=== PATIENT | female | born 1995 | race Caucasian/White ===

== ENCOUNTER → 2020-10-29 09:11 | Outpatient (CLI) | payer BC, SELFPAY ==
--- NOTE | 2020-10-29 09:15 | US_ITS ---
STUDY: ULTRASOUND BREAST - RIGHT REASON FOR EXAM: Female, 25 years old. Lump TECHNIQUE: Axial and longitudinal images of the RIGHT breast were performed with a high resolution ultrasound transducer. # OF IMAGES: 10 COMPARISON: None. FINDINGS: RIGHT Breast: Ultrasound evaluation of the right breast, in the area of concern, shows a well-defined simple cyst measuring 1.6 x 1.5 x 1.2 cm. There is no suspicious shadowing solid lesion, architectural distortion, or clustered shadowing calcifications. This is a benign entity, but if bothersome to the patient it could be aspirated under sonographic guidance. US/Breast Limited Unilateral IMPRESSION: Simple cyst measuring 1.6 x 1.5 x 1.2 cm correlating to the palpable right breast lump. No specific follow-up is needed, however, if this lesion is bothersome to the patient, it could be aspirated under sonographic guidance ASSESSMENT CATEGORY: BIRADS Category 2: Benign. A letter regarding these results will be sent to the patient by the facility within 30 days. Electronically Signed: Jacky Jay MD at 10:29 EDT , Service support ,
--- NOTE | 2020-10-29 09:15 | BI_ITS ---
MAMMOGRAPHY - BILATERAL DIAGNOSTIC REASON FOR EXAM: Female, 25 years old. Right-sided lump PERTINENT HISTORY: Grandmother with breast cancer. TECHNIQUE: Digital examination. Mediolateral oblique (MLO) and craniocaudad (CC) views of both breasts were obtained. CAD: CAD was performed on this study. COMPARISON: None. Baseline examination. FINDINGS: Breast Composition: The breasts are extremely dense, which lowers the sensitivity of mammography. There are no dominant masses or suspicious calcifications. No other significant abnormalities are identified. BI/DIAG MAMM W/CAD, BILAT IMPRESSION: Although there are no suspicious mammographic findings, because the patient complains of a palpable right breast lump, further evaluation of this area with ultrasound is recommended. Recall Side: Right Breast ASSESSMENT CATEGORY: BIRADS Category 0: Incomplete. Need additional imaging evaluation. A letter regarding these results will be sent to the patient by the facility within 30 days. FOLLOW UP RECOMMENDATION: Ultrasound Recommended. (I) Approximately 10% of breast cancers are not detected by mammography. A normal mammogram should not delay biopsy of a clinically suspicious abnormality. Electronically Signed: Jacky Jay MD at 10:27 EDT , Service support ,
== END ==
PROVIDERS: Referring Provider Student in an Organized Health Care Education/Training Program; Visit Provider Student in an Organized Health Care Education/Training Program
DX: N63.11 Unspecified lump in the right breast, upper outer quadrant (principal)
CPT/HCPCS: 76642; 77062; 77066; G0279

== ENCOUNTER → 2020-12-23 | Outpatient (CLI) | payer BC, SELFPAY ==
[2020-12-26 03:07] LABS: Chlamydia By Nucleic Acid AMP Negative (Negative)
[2020-12-26 08:15] LABS: Gonococcus By Nucleic Acid AMP Negative (Negative)
[2020-12-27 08:51] LABS: HPV APTIMA, High Risk Negative (Negative); HPV Reflexed? YES, CHARGE PATIENT
== END | disposition home or self-care (01) ==
LOC: LABSPEC 12:25
PROVIDERS: Visit Provider Obstetrics & Gynecology
DX: Z12.4 Encounter for screening for malignant neoplasm of cervix (principal); Z11.3 Encounter for screening for infections with a predominantly sexual mode of transmission
CPT/HCPCS: 87491; 87591; 87624; 88175; G0145

== ENCOUNTER → 2021-01-13 17:00 | Outpatient (CLI) | payer BC, SELFPAY ==
[2021-01-13 17:36] LABS: Absolute Neutrophil Count 5.9 X10^3/uL (2.0-7.7); Basophil# 0.03 X10^3/uL; Basophil% 0.3 % (0-1); Eosinophil# 0.06 X10^3/uL; Eosinophils% 0.6 % (0-5); Hematocrit 37.5 % (37-47); Hemoglobin 12.5 g/dL (12.0-15.0); Lymphocyte % 27.5 % (19-41); Mean Corp Hgb Conc 33.3 g/dL (32-36); Mean Corpuscular Hgb 28.9 pg (27.0-32.0); Mean Corpuscular Volume 86.8 fL (81-99); Mean Platelet Vol. 9.3 fl (6.2-12.0); Monocyte# 0.82 X10^3/uL; Monocyte% 8.7 % (0-10); NRBC Flagged by Analyzer 0 % (0-5); Neutrophil # 5.92 X10^3/uL (2.7-7.7); Neutrophil % 62.5 % (47-70); Platelet Count 377 K/mm3 (150-450); RBC Distribution Width CV 12.4 % (11.6-14.6); RBC Distribution Width SD 39.7 fl (35.1-43.9); Red Blood Count 4.32 M/mm3 (4.2-5.4); White Blood Count 9.5 K/mm3 (4.4-11.0)
[2021-01-14 10:18] LABS: HIV - WCH Non-Reactive (Nonreactive); Hepatitis B Surface Antigen Non-Reactive (Nonreactive); Hepatitis C Antibody Non-Reactive (Nonreactive); Rubella IgG Reactive (Nonreactive); Syphilis Antibodies Non-reactive
== END ==
PROVIDERS: Visit Provider Obstetrics & Gynecology
DX: Z34.81 Encounter for supervision of other normal pregnancy, first trimester (principal)
CPT/HCPCS: 36415; 81220; 85025; 86703; 86762; 86780; 86803; 87086; 87088; 87340

== ENCOUNTER → 2021-05-04 09:12 | Outpatient (CLI) | payer BC, SELFPAY ==
[2021-05-04 10:14] LABS: Hematocrit 34.8 % (37-47); Hemoglobin 11.4 g/dL (12.0-15.0); Mean Corp Hgb Conc 32.8 g/dL (32-36); Mean Corpuscular Hgb 29.3 pg (27.0-32.0); Mean Corpuscular Volume 89.5 fL (81-99); Mean Platelet Vol. 10.2 fl (6.2-12.0); Platelet Count 323 K/mm3 (150-450); RBC Distribution Width CV 12.9 % (11.6-14.6); RBC Distribution Width SD 42.4 fl (35.1-43.9); Red Blood Count 3.89 M/mm3 (4.2-5.4); White Blood Count 12.3 K/mm3 (4.4-11.0)
[2021-05-04 10:53] LABS: Glucose Challenge Gest 1H 50g 99 mg/dL (70-140)
== END ==
PROVIDERS: Visit Provider Obstetrics & Gynecology
DX: Z34.82 Encounter for supervision of other normal pregnancy, second trimester (principal)
CPT/HCPCS: 36415; 82950; 85027

== ENCOUNTER 2021-05-14 15:25 | Outpatient (CLI) | payer BC, SELFPAY ==
[2021-05-14 15:44] VITALS: BMI 29.9
[2021-05-14 15:45] VITALS: BP 118/76; PULSE 102; TEMP 36.9; O2SAT 99
[2021-05-14 15:46] VITALS: BP 118/76; PULSE 102
--- NOTE | 2021-05-14 16:29 | OB.TRI.NOTE ---
HPI - General HPI Narrative CECI OVALLES, is a 25 F who presents status post fall PFSH PFSH Home Medications [id number] [] 1 tab PO DAILY 05/14/21 [History Last Taken 05/14/21 08:00] Allergy/AdvReac Type Severity Reaction Status Date / Time No Known Allergies Allergy Verified 05/14/21 15:56 Physical Exam Const alert, oriented x3, no apparent distress, average body habitus, healthy appearing and well nourished HEENT moist oral mucous membranes Head and Scalp: normocephalic and atraumatic Face and Sinus: normal facial exam Eyes PERRL Neck full ROM Resp normal respiratory effort, no retractions and no use of accessory muscles GI normal to inspection, nondistended, normoactive bowel sounds GI Narrative: Gravid, soft and nontender Extremity normal to inspection, full ROM and no clubbing, cyanosis or edema Psych mental status grossly normal, affect normal, speech normal and activity/motor behavior normal NST FHR Rate Baby A Baseline: 140 Variability:: Moderate Accelerations:: 10 x 10 Decelerations:: None NST Reactive:: Yes Uterine Activity:: quiet Assessment & Plan (1) : PLAN: Patient status post fall at 11:00 AM. Fell on hands and knees, believes there was no abdominal trauma. Patient did not lose consciousness, did not hit head. Overall feels well, knees are sore from fall and has some muscle aches. No abdominal tenderness. No vaginal bleeding. Discussed heart rate tracing, within normal limits. Patient desires discharge home. Fall was greater than 4 hours ago, 1 hour of monitoring within normal limits. Okay to discharge home with precautions and follow-up at scheduled appointments
== END 2021-05-14 16:45 | disposition home or self-care (01) ==
LOC: WPOUT 15:37 → WP 15:38
PROVIDERS: Referring Provider Obstetrics & Gynecology; Visit Provider Obstetrics & Gynecology
DX: O26.899 Other specified pregnancy related conditions, unspecified trimester (principal); M79.10 Myalgia, unspecified site; W19.XXXA Unspecified fall, initial encounter; Y93.9 Activity, unspecified; Y92.9 Unspecified place or not applicable; Y99.9 Unspecified external cause status; Z3A.00 Weeks of gestation of pregnancy not specified
CPT/HCPCS: 59025; 59050; 99218; G0378

== ENCOUNTER 2021-07-10 12:26 | Outpatient (CLI) | payer BC, SELFPAY | END 2021-07-10 23:59 | disposition short-term general hospital (02) | LOC: LABSPEC 12:28 | PROVIDERS: Visit Provider Obstetrics & Gynecology | DX: Z36.85 Encounter for antenatal screening for Streptococcus B (principal) | CPT/HCPCS: 87081 ==

== ENCOUNTER 2021-07-30 15:50 | Inpatient (IN) | payer BC, SELFPAY ==
[2021-07-30] VITALS (12 sets, daily range): BP systolic 132–175; BP diastolic 81–103; PULSE 60–88; TEMP 36.3–37.5; O2SAT 81–97; BMI 31.4
[2021-07-30] MEDS: 0.9% Saline Lock 10 ML Syringe IV (16:20)
[2021-07-30 16:49] LABS: Absolute Lymphocyte Count 2.63 X10^3/uL (0.83-4.51); Absolute Neutrophil Count 6.9 X10^3/uL (2.0-7.7); Basophil# 0.03 X10^3/uL; Basophil% 0.3 % (0-1); Eosinophil# 0.04 X10^3/uL; Eosinophils% 0.4 % (0-5); Hematocrit 39.1 % (37-47); Hemoglobin 12.9 g/dL (12.0-15.0); Lymphocyte # 2.63 X10^3/ul (0.83-4.51); Mean Corpuscular Hgb 28.4 pg (27.0-32.0); Mean Corpuscular Volume 86.1 fL (81-99); Mean Platelet Vol. 11.2 fl (6.2-12.0); Monocyte# 0.86 X10^3/uL; Monocyte% 8.2 % (0-10); NRBC Flagged by Analyzer 0 % (0-5); Neutrophil # 6.89 X10^3/uL (2.7-7.7); Neutrophil % 65.2 % (47-70); Platelet Count 347 K/mm3 (150-450); RBC Distribution Width CV 13.6 % (11.6-14.6); RBC Distribution Width SD 42.5 fl (35.1-43.9); Red Blood Count 4.54 M/mm3 (4.2-5.4); White Blood Count 10.5 K/mm3 (4.4-11.0)
[2021-07-30] MEDS: miSOPROStol 25 MCG TABLET PO ×2 (17:00→21:18)
--- NOTE | 2021-07-30 17:13 | PCM.HP.BLA ---
History and Physical Date of Admission: 07/30/21 ACOG ANTEPARTUM RECORD - HISTORY AND PHYSICAL (07/30/2021) Name: CECI OVALLES History of this : This is a 25 year old [id number] presents at 39 wks + 3 days gestation. Patient was noted to have elevated blood pressures in the office today along with 1+ proteinuria. Given this she was sent to labor and delivery for induction. OB Physician: Jaclyn Tomlinson Craig's Physician: PED PROGRAMMING MANAGER ...................................................................... : 1995 Age: 25 Address: [address] [place] [address] Phone: [phone] Insurance Carrier: PELON Wand[facility] [id number] Emergency Contact: BLOSSOM COSTELLO [phone] ...................................................................... Final RICKIE: 08/03/21 By Ultrasound: 8 weeks 1 day PARITY: (G-Total Pregnancies P-Fullterm,Premature,Induced AB,Spont AB, Ectopics, Multiple,Living) RICKIE CONFIRMATION: By LMP: 10/27/20 Initial Exam: 08/03/21 By First Ultrasound Exam: 08/05/21 Final RICKIE: 08/03/21 OB PROBLEM LIST: Denies depression/anxiety history First cousin with Down Syndrome genetic screening negative , carrier screening neg CF. Not enough sample for SMA Had Covid and pneumonia n April 2020 Plans epidural, and will breastfeed. 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 Illicit Drug Use - None Sexual Activity - Residence - lives with Place of - [place], [place] Spouse-Sig Other Name - Pieter Costello Spouse-Sig Other Occupation - [employer] Spouse-Sig Other Phone No - [phone] PRIOR DELIVERY HISTORY DEL DATE GEST LAB WT LB WT OZ TYPE ANES LABOR TX ANTEPARTUM FLOW CHART VISIT GE RTC FU F F AR U U DATE WK MD WKS HT PN HR M SS BP ED WT AR GL D EF ST __ ____ ___ __ __ ___ __ __ __ ___ __ __ __ ___ __ 17 Feb 39 JMW 6 38 V + + 140/100 0 194 1+ - 1 50 -2 10 Jul 38 JM 1 38 V + + 122/80 1+ 195 tr - 1 04 Jul 37 JM 1 37 V + + 130/83 0 194 - - 1 Jun JM 1 36 V + + 138/70 0 196 tr - 1 21 Jun JM 1 35 V + + 122/74 0 187 tr - 07 Jun JM 2 33 V + + O 120/76 0 191 tr - 15 Jun 11 JM 2 30 - + + 134/68 0 188 1+ - 22 May 09 JM 3 27 - + + 138/70 0 184 tr ne 15 Apr 02 JM 4 21 - on + 118/82 0 178 - - 03 Feb 25 JM 5 15 - + ? 102/74 0 165 tr - 03 Jan 21 JM 4 11 - on O 140/80 0 164 - - ANTEPARTUM NOTE(S): Jul 30 2021: see note, to L and D for cytotec, No PIH Sxs Jul 23 2021: nausea and vomitting Jul 17 2021: Jul 10 2021: headaches Jul 03 2021: doing well Jun 19 2021: no concerns expressed May 27 2021: see note May 04 2021: FM well, Feels well, Labs drawn Mar 27 2021: Sono Today,Good FM,Feeling Well Feb 13 2021: Periodic Nausea, Energy level improving Jan 13 2021: COMPREHENSIVE ANTEPARTUM NOTE(S): Jul 30 2021: Ceci is here for visit. She reports cough, congestion for several weeks. Covid testing negative. OTC not helping much. Had Mucinex last night, Tylenol this am. Good mvmt, no edema. Denies h/a. B/P elevated today x2. LMT Jul 23 2021: Ceci is 38w3d here for PNV. Good FM 1+edema. States her nausea and vomitting is back. Would like cervix checked. BR Jul 23 2021: 38wk, 1 cm CE. Considering IOL. JM Jul 17 2021: Ceci is 37w4d. Here for PNV. FM. No edema. She complains of a few days of a slightly elevated BP. Usually goes back to normal after rest, Would like cervix check today. MR Jul 17 2021: 37wks, GBS neg. JM Jul 15 2021: H taken to OB. tkg Jul 10 2021: Ceci is 36w4d here for visit. Good FM no edema. C/O headaches. GBS and LARC consent done today. BR Jul 10 2021: 36wks, GBS today. JM Jul 03 2021: Ceci is 35w4d here for PNV good FM no edema doing well no concerns or questions, BR Jul 03 2021: 35 weeks, status post upper respiratory tract infection. Now recovered. GBS next visit. JM Jun 19 2021: Ceci is here for a pnv at 33/4. Good FM. No edema present. Denies concerns/ questions. No ctx's present. Liam passed over [place]. MK Jun 19 2021: 33 weeks, liam passed over the holidays. Doing well no signs of depression. JM May 27 2021: Ceci is 30w2d, here for PNV, positive movement no edema. She reports dizzy spells starting since tuesday. She says she has been getting one dizzy spell a day lasting a couple minutes up to two hours. Laying down helps. Otherwise she has been doing good. BR May 27 2021: 30wk, had dizziness for an hour for three days. During eating. No fall or trauma. Educated on hydration. MACKENZIE May 04 2021: 27 weeks, 1 hour GTT within normal limits. Still with mild nausea. JM Mar 27 2021: 21 weeks, anatomy ultrasound within normal limits. Still with some nausea, slight eating meals and hydrating. For 1 hour GTT next visit. MACKENZIE Feb 13 2021: 15 weeks, still with nausea. Mostly at night. Is able to hydrate and keep small meals down. Educated on Pepcid and Tums for reflux. For anatomy ultrasound next visit. MACKENZIE Jan 13 2021: 11 weeks, for NIPT and carrier screening today. Along with panel today. Patient has severe nausea at times but vomiting comes and goes, still able to hydrate and keep small meals down. Already taking Phenergan and Diclegis. Educated patient on hydration and need for further intervention, currently for expectant management. MACKENZIE Jan 01 2021: TELEHEALTH NOB VISIT, 40 MINUTE DURATION. Ceci is a 25 year old with an RICKIE of 08/03/2021, current GA is 9 w 3 d. She resides with her , Pieter, and she states that he is supportive. 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 She reports that she has been experiencing nausea and Dec 23 2020: Ceci presents here today with spouse(Pieter) for Missed Menses appointment. 25 y.o. G 1 P 0 non-smoker with regular menses and LMP of 10-27-20 lasting her average of 5-6 days. UPT is positive today in our Office. Denies spotting/bleeding thus far in this . Presents at 9 weeks 1 day by LMP with an approximate RICKIE of 08-03-21. Plans to deliver at [facility]. Reports having daily nausea REVIEW OF SYSTEMS: GENERAL - Denies fever, or chills SKIN - Denies rash, new skin lesions, or change in moles EYES - Denies blurred vision, or change in visual acuity EARS - Denies ear pain, or difficulty hearing NOSE - Denies nasal congestion, discharge, or bleeding MOUTH - Denies sore throat, or difficulty swallowing NECK - Denies pain or swelling RESPIRATORY - Denies shortness of breath, cough, wheezing CARDIOVASCULAR - Denies palpitations, chest pain, orthopnea, PND, peripheral edema, syncope or claudication GASTROINTESTINAL - Denies nausea, vomiting, diarrhea, constipation, Denies abdominal pain, melena and or bright red blood GENITOURINARY - Denies dysuria, frequency of urination, urgency, or hesitancy MUSCULOSKELETAL - Denies joint or muscle pain, or back pain NEUROLOGICAL - Denies localized numbness, weakness, or tingling PSYCHIATRIC - Denies depression, anxiety, substance abuse or suicide attempts ENDOCRINE - Denies heat or cold intolerance, weight loss or gain, increasing thirst HEMATO-IMMUNOLOGIC - Denies easy bruising, bleeding, oral ulcerations or recurrent infections GENETICS SCREENING: Age 35+ years: No Thalassemia: No Neural Tube Defect: No Down Syndrome: Yes Cousin GIO-SACHS: No Sickle Cell Disease: No Hemophilia: No Musc. Dystrophy: No Cystic Fibrosis: No-declines screening Lara Chorea: No Mental Retardation: No Fragile X: No Other genetic: No Other defects: No SABs/still births: No Drugs since LMP: No INFECTION HISTORY: High risk AIDS: No High risk Hepatitis: No Exposed to TB: No Exposed to Herpes: No Rash/viral illness since LMP: No History of STD: No MENSTRUAL HISTORY: *Menses Amount/Duration: 4-5 DAYSMenses Regularity: RegularMenarche (Age Onset): 12* PAST SUMMARY: PARITY: 1. Total Pregnancies............ 1 2. Full Term Pregnancies........ 0 3. Premature.................... 0 4. Abortions - Induced.......... 0 5. Abortions - Spontaneous...... 0 6. Ectopics..................... 0 7. Multiple Births.............. 0 8. Living Children.............. 0 PHYSICAL EXAMINATION General Appearence: 25 yo female in no acute distress Vital Signs: AF, VSS Heart: RRR without rubs or gallops Lungs: CTA x 2 Breasts: deferred Abdomen: gravid Pelvis: Cervix: 1/50 Presentation: cephalic Station: -2 Fetus: Size: AGA Movement: present Heart: present LAB TEST(S) ORDERED SINCE:11/06/20 05/04/2021 GLUCOSE CHALLENGE GEST 1H 50G 05/04/2021 CBC-COMPLETE BLOOD CNT NO DIFF 02/01/2021 MISCELLANEOUS LAB PROCEDURE 2 02/01/2021 MISCELLANEOUS LAB PROCEDURE 02/01/2021 CYSTIC FIBROSIS PROF 01/30/2021 CF Mother 01/15/2021 URINE CULTURE 01/14/2021 RUBELLA IGG 01/14/2021 L509.8000 01/14/2021 HIV - [facility] 01/14/2021 HEPATITIS C ANTIBODY 01/14/2021 HEPATITIS B SURFACE ANTIGEN 01/13/2021 T AND S-NO CHARGE W/PNP 01/13/2021 CBC W/DIFF, AUTOMATED 12/27/2020 PAP IG HPV HR APTIMA 12/26/2020 CHLAMYDIA/GC CYNDY APTIMA 07/30/2021 CBC W/DIFF, AUTOMATED 07/13/2021 RULE OUT BETA STREP (GRP. B) == ==== Order Observation Description Value Ref_Range A* Site == ==== CBC W/DIFF, AUT NOTE [facility] CBC W/DIFF, AUT WBC 10.5 K/mm3 4.4-11.0 ML CBC W/DIFF, AUT RBC 4.54 M/mm3 4.2-5.4 ML CBC W/DIFF, AUT HGB 12.9 g/dL 12.0-15.0 ML CBC W/DIFF, AUT HCT 39.1 37-47 ML CBC W/DIFF, AUT MCV 86.1 fL 81-99 ML CBC W/DIFF, AUT MCH 28.4 pg 27.0-32.0 ML CBC W/DIFF, AUT MCHC 33.0 g/dL 32-36 ML CBC W/DIFF, AUT RDW CV 13.6 11.6-14.6 ML CBC W/DIFF, AUT RDW SD 42.5 fl 35.1-43.9 ML CBC W/DIFF, AUT PLT 347 K/mm3 150-450 ML CBC W/DIFF, AUT MPV 11.2 fl 6.2-12.0 ML CBC W/DIFF, AUT NEUT% 65.2 47-70 ML CBC W/DIFF, AUT LY% 25.0 19-41 ML CBC W/DIFF, AUT MONO% 8.2 0-10 ML CBC W/DIFF, AUT EO% 0.4 0-5 ML CBC W/DIFF, AUT BASO% 0.3 0-1 ML CBC W/DIFF, AUT IG% 0.900 0.0-0.9 ML IG% - Immature Granulocytes (promyelocytes, myelocytes and metamyelocytes) > 1% indicates that a LEFT SHIFT is Present. CBC W/DIFF, AUT ABSOLUTE NEUT 6.9 X10 3/uL 2.0-7.7 ML CBC W/DIFF, AUT ABSOLUTE LYMPH 2.63 X10 3/uL 0.83-4.51 ML CBC W/DIFF, AUT NUCLEATED RBC 0 0-5 ML RULE OUT BETA S NOTE [facility] GLUCOSE CHALLEN NOTE [facility] GLUCOSE CHALLEN GLU GEST 50G 1H 99 mg/dL 70-140 ML CBC-COMPLETE BL NOTE [facility] CBC-COMPLETE BL WBC 12.3 K/mm3 4.4-11.0 H ML CBC-COMPLETE BL RBC 3.89 M/mm3 4.2-5.4 L ML CBC-COMPLETE BL HGB 11.4 g/dL 12.0-15.0 L ML CBC-COMPLETE BL HCT 34.8 37-47 L ML CBC-COMPLETE BL MCV 89.5 fL 81-99 ML CBC-COMPLETE BL MCH 29.3 pg 27.0-32.0 ML CBC-COMPLETE BL MCHC 32.8 g/dL 32-36 ML CBC-COMPLETE BL RDW CV 12.9 11.6-14.6 ML CBC-COMPLETE BL RDW SD 42.4 fl 35.1-43.9 ML CBC-COMPLETE BL PLT 323 K/mm3 150-450 ML CBC-COMPLETE BL MPV 10.2 fl 6.2-12.0 ML CYSTIC FIBROSIS NOTE [facility] CYSTIC FIBROSIS CF, SCREEN LCI TEST RESULT LIMITS Cystic Fibrosis Profile CF, Screen Comment: RESULTS: Negative for 32 mutations analyzed INTERPRETATION: This individual is negative for the mutations analyzed. This negative result may need further interpretation depending on the clinical indication. This result reduces but does not eliminate the risk to be a CF carrier. COMMENTS: The detection rate varies with ethnicity and is listed below. The presence of an undetected mutation in the CF gene cannot be ruled out. In the absence of family history, the remaining risk that a person with a negative result could have at least one CF mutation is listed in the table. If there is a family history of CF, these risk figures do not apply. As detailed information regarding this individual's family history would permit a more accurate assessment of this individual's risk to be a carrier of cystic fibrosis, please contact [facility] at for a revised report. Mutation Detection Detection rates are based on mutation Rates among Ethnic frequencies in patients affected with Groups cystic fibrosis. Among individuals with an atypical or mild presentation (e.g. congenital absence of the vas deferens, pancreatitis) detection rates may vary from those provided here: Carrier risk reduction when no family history Detection Ethnicity Rate Ashkenazi 07/08 to 97% Quaker 07/07 to 90% (non-) -Martiniquais to 69% to 73% to 55% This interpretation is based on the clinical and family relationship information provided and the current understanding of the molecular genetics of this condition. MUTATIONS ANALYZED: G85E V520F [id number] 2183AA to G R117H G542X M4349X 2184delA R334W S549N 394delTT 2789+5G to A R347H S549R 621+1G to T 3120+1G to A R347P G551D 711+1G to T 3659delC A455E R553X 1078delT 3849+10kbC to T AinvoL274 R560T 1717-1G to A 3876delA KyfofC060 S0722M 1898+1G to A 3905insT METHODS/LIMITATIONS: DNA is isolated from the sample and tested for the 32 CF mutations on the Herm[employer]ie Array Platform ([place] pte). Regions of the CFTR gene are amplified enzymatically and subjected to a solution-phase multiplex allele-specific primer extension with subsequent hybridization to a bead array and fluorescence detection. Polymorphisms F508C, I506V and I507V are included in this panel to rule out false positive [id number] homozygotes. Reflex testing of 5T is included in the panel for R117H interpretation. False positive or negative results may occur for reasons that include genetic variants, blood transfusions, bone marrow transplantation, erroneous representation of family relationships or contamination of a sample with maternal cells. REFERENCES: 1. Updates on Carrier Screening for Cystic Fibrosis. (2011) Am J Ob Gynecol 117(4):7645-1431 2. Alex et al. (2004) Chelsie Med 6:387-91 3. Los et al. (2002) Chelsie Med 4:379-391 4. Preconception and carrier screening for cystic fibrosis: (2001)ACOG.ACMG publication Results Released By: Sergo Brandt, Ph.D., Computer Systems Security Administrator Released By: Sergo Brandt, Ph.D., Director PDF Comment: The assay provides information intended to be used for carrier screening in adults of reproductive age, as an aid in screening, and as a confirmatory test for another medically established diagnosis in newborns and children. The test is not indicated for use in diagnostic testing, pre-implantation screening, or for any stand-alone diagnostic purposes without confirmation by another medically established diagnostic product or procedure. TESTING PERFORMED AT [facility]. ORIGINAL REPORT ON FILE IN LAB CONTAINS ADDITIONAL TEST SITE INFORMATION. MISCELLANEOUS L NOTE [facility] MISCELLANEOUS L [facility] TEST 2 ML TEST RESULT LIMITS SMN1 Copy Number Analysis SMA Results: Test not performed Disease (Gene) Results Interpretation Spinal muscular atrophy Failed The specimen provided (SMN1) analysis was of insufficient quality for SMN1 copy number analysis. For repeat SMN1 copy number analysis, please submit 10cc of blood drawn into an ACD-A, yellow top tube. Please ship to [email or web address] on the day the sample is drawn and return a copy of this notice with the new sample. TESTING PERFORMED AT [facility]. ORIGINAL REPORT ON FILE IN LAB CONTAINS ADDITIONAL TEST SITE INFORMATION. MISCELLANEOUS L NOTE [facility] MISCELLANEOUS L [facility] LAB TEST ML TEST RESULT LIMITS [id number] PLUS Core Gestation Jackson Fraction 3% Gestational Age > or = 9w: Yes Test Result Negative Scientific Publications Editor Comments This specimen showed an expected representation of chromosome 21, 18 and 13 material. Clinical correlation is suggested. Approved By Ricardo Meng MD, PhD, Director, [facility] Trisomy 21 (Down Syndrome) Negative Trisomy 18 (Crowder Syndrome) Negative Trisomy 13 (Patau Syndrome) Negative Sex Consistent with Female Negative Predictive Value Note The Negative Predictive Value (NPV) for trisomy 21, 18, and 13 is greater than 99%. The NPV for SCA and ESS cannot be calculated as SCA and ESS are only reported when an abnormality is detected. Positive Predictive Value N/A About the Test The MaterniT(R) 21 PLUS laboratory-developed test (LDT) analyzes circulating cell-free DNA from a maternal blood sample. The test is indicated for use in women with increased risk for chromosomal aneuploidy. Validation data on twin pregnancies is limited and the ability of this test to detect aneuploidy in a triplet has not yet been validated. Test Method Circulating cell-free DNA was purified from the plasma component of maternal blood. The extracted DNA was then converted into a genomic DNA library for aneuploidy analysis of chromosomes 21, 18, and 13 via next generation sequencing.[1] Optional findings based on the test order include sex chromosome aneuploidy (SCA)[2], and enhanced sequencing series (ESS)[3], which will only be reported on as an additional finding when an abnormality is detected. SCA testing includes information on X and Y representation, while ESS testing includes deletions in selected regions (22q, 15q, 11q, 8q, 5p, 4p, 1p) and trisomy of chromosomes 16 and 22. Performance The performance characteristics of the MaterniT(R) 21 PLUS laboratory-developed test (LDT) have been determined in a clinical validation study with women at increased risk for chromosomal aneuploidy.[1],[2],[3],[4] Performance Characteristics Note ! Y-Chromosome ( Sex) ! Accuracy: 99.4% ! ! ! ! Region (associated syndrome) ! Est. Sens# ! Est. Spec ! ! ! ! Trisomy 21 (Down Syndrome) ! 99.1% ! 99.9% ! ! ! ! Trisomy 18 (Crowder Syndrome) ! >99.9% ! 99.6% ! ! ! ! Trisomy 13 (Patau Syndrome) ! 91.7% ! 99.7% ! ! ! ! Sex Chromosome Aneuploidies## ! 96.2% ! 99.7% ! ! ! * As reported in [facility] database [id number] [http://dbsearch.clinicalDavra Networksome.org/search/ ] # Estimated Sensitivity. Sensitivity estimated across the observed size distribution of each syndrome [per [facility] database nstd37] and across the range of fractions observed in routine clinical NIPT. Actual sensitivity can also be influenced by other factors such as the size of the event, total sequence counts, amplification bias, or sequence bias. ## Jackson gestation only. Limitations of the Test While the results of these tests are highly accurate, discordant results, including inaccurate sex prediction, may occur due to placental, maternal, or mosaicism or neoplasm; vanishing twin; prior maternal organ transplant; or other causes. Sex chromosomal aneuploidies are not reportable for known multiple gestations. These tests are screening tests and not diagnostic; they do not replace the accuracy and precision of diagnosis with CVS or amniocentesis. A patient with a positive test result should be referred for genetic counseling and offered invasive diagnosis for confirmation of test results.[5] A negative result does not ensure an unaffected nor does it exclude the possibility of other chromosomal abnormalities or defects which are not a part of these tests. An uninformative result may be reported, the causes of which may include, but are not limited to, insufficient sequencing coverage, noise or artifacts in the region, amplification or sequencing bias, or insufficient fraction. These tests are not intended to identify pregnancies at risk for neural tube defects or ventral wall defects. Testing for whole chromosome abnormalities (including sex chromosomes) and for subchromosomal abnormalities could lead to the potential discovery of both and maternal genomic abnormalities that could have major, minor, or no, clinical significance. Evaluating the significance of a positive or a non-reportable result may involve both invasive testing and additional studies on the mother. Such investigations may lead to a diagnosis of maternal chromosomal or subchromosomal abnormalities, which on occasion may be associated with benign or malignant maternal neoplasms. These tests may not accurately identify triploidy, balanced rearrangements, or the precise location of subchromosomal duplications or deletions; these may be detected by diagnosis with CVS or amniocentesis. The ability to report results may be impacted by maternal BMI, maternal weight, maternal systemic lupus erythematosus (SLE) and/or by certain pharmaceutical agents such as low molecular weight heparin (for example: Lovenox(R), Xaparin(R), Clexane(R) and Fragmin(R)). The results of this testing, including the benefits and limitations, should be discussed with a qualified healthcare provider. management decisions, including termination of the , should not be based on the results of these tests alone. The healthcare provider is responsible for the use of this information in the management of their patient. Note This test was developed and its performance characteristics determined by [facility]. It has not been cleared or approved by the Food and Drug Administration. This laboratory is certified under the Clinical Laboratory Improvement Amendments (CLIA) as qualified to perform high complexity clinical laboratory testing and accredited by the College [employer] (CAP). If there is future clinical need for adding MaterniT GENOME testing, this specimen will be available until term. [facility] samples will not be retained beyond 60 days. [facility] patients will have to send a new sample for re-sequencing ([facility] Test Code: 791100). References 1. Christal ARMSTRONG, et al. Chelsie Med. 2012;14(3):296-305. 2. Russ COLLINS et al. Prenat Diag. 2013;33(6):591-597. 3. Kenneth C, et al. Clin Chem. 2015 Apr;61(4):608-616. 4. Christal ARMSTRONG, et al. Chelsie Med. 2011;13(11):913-920. 5. ACOG/SMFM Joint Committee Opinion No. 545, May 2012 TESTING PERFORMED AT [facility]. ORIGINAL REPORT ON FILE IN LAB CONTAINS ADDITIONAL TEST SITE INFORMATION. URINE CULTURE NOTE [facility] HEPATITIS C ANT NOTE [facility] HEPATITIS C ANT HEPATITIS C AB Non-Reactive Nonreactive ML Non Reactive: < 0.8 Equivocal: >/= 0.8 to < 1.0 Reactive: >/= 1.0 The CDC recommends that a reactive/equivocal HCV antibody result be followed up by the HCV Nucleic Acid Amplification test (262273) HEPATITIS B FLASH NOTE [facility] HEPATITIS B FLASH HEP B SURF AG Non-Reactive Nonreactive ML HIV - [facility] NOTE [facility] HIV - [facility] HIV Non-Reactive Nonreactive ML L509.8000 NOTE [facility] L509.8000 SYPHILIS ABS Non-reactive ML RUBELLA IGG NOTE [facility] RUBELLA IGG RUBELLA IGG Reactive Nonreactive ML Antibody Results Interpretation of Immune Status Non Reactive Presumed Non-Immune Equivocal Equivocal Reactive Presumed Immune PN N [facility]~[address] [place], [address]~ T AND AB SCREEN GEL NEGATIVE ML CBC W/DIFF, AUT NOTE [facility] CBC W/DIFF, AUT WBC 9.5 K/mm3 4.4-11.0 ML CBC W/DIFF, AUT RBC 4.32 M/mm3 4.2-5.4 ML CBC W/DIFF, AUT HGB 12.5 g/dL 12.0-15.0 ML CBC W/DIFF, AUT HCT 37.5 37-47 ML CBC W/DIFF, AUT MCV 86.8 fL 81-99 ML CBC W/DIFF, AUT MCH 28.9 pg 27.0-32.0 ML CBC W/DIFF, AUT MCHC 33.3 g/dL 32-36 ML CBC W/DIFF, AUT RDW CV 12.4 11.6-14.6 ML CBC W/DIFF, AUT RDW SD 39.7 fl 35.1-43.9 ML CBC W/DIFF, AUT PLT 377 K/mm3 150-450 ML CBC W/DIFF, AUT MPV 9.3 fl 6.2-12.0 ML CBC W/DIFF, AUT NEUT% 62.5 47-70 ML CBC W/DIFF, AUT LY% 27.5 19-41 ML CBC W/DIFF, AUT MONO% 8.7 0-10 ML CBC W/DIFF, AUT EO% 0.6 0-5 ML CBC W/DIFF, AUT BASO% 0.3 0-1 ML CBC W/DIFF, AUT IG% 0.400 0.0-0.9 ML IG% - Immature Granulocytes (promyelocytes, myelocytes and metamyelocytes) > 1% indicates that a LEFT SHIFT is Present. CBC W/DIFF, AUT ABSOLUTE NEUT 5.9 X10 3/uL 2.0-7.7 ML CBC W/DIFF, AUT ABSOLUTE LYMPH 2.60 X10 3/uL 0.83-4.51 ML CBC W/DIFF, AUT NUCLEATED RBC 0 0-5 ML CF Mother CF Carrier (mother) scanned Negative [facility] PAP IG HPV HR A NOTE [facility] PAP IG HPV HR A DIAG Comment . LCI NEGATIVE FOR INTRAEPITHELIAL LESION OR MALIGNANCY. PAP IG HPV HR A ADEQ Comment . [facility] Satisfactory for evaluation. Endocervical and/or squamous metaplastic cells (endocervical component) are present. PAP IG HPV HR A PERFORM Comment . [facility] Nyasia Valle, Digital Media Representative (ASCP) This liquid based ThinPrep(R) pap test was screened with the use of an image guided system. PAP IG HPV HR A COMM . . [facility] PAP IG HPV HR A PAPSMR Comment . L[facility] The Pap smear is a screening test designed to aid in the detection of premalignant and malignant conditions of the uterine cervix. It is not a diagnostic procedure and should not be used as the sole means of detecting cervical cancer. Both false-positive and false-negative reports do occur. PAP IG HPV HR A HPV APTIMA, HR Negative Negative [facility] This nucleic acid amplification test detects fourteen high- risk HPV types (16,18,31,33,35,39,45,51,52,56,58,59,66,68) without differentiation. Performed at: [address] [id number] Scientific Publications Editor: Donna Dee MD, Phone: [phone] Performed at: =[address] [id number] Scientific Publications Editor: Donna Dee MD, Phone: [phone] CHLAMYDIA/GC NA NOTE [place] CHLAMYDIA/GC NA CHLAMY,NUC ACID Negative Negative [facility] CHLAMYDIA/GC NA GC BY NUC ACID Negative Negative [facility] Performed at: =[address] [id number] Scientific Publications Editor: Donna Dee MD, Phone: [phone] Group B Beta Streptococcus is not isolated. Mixed Gram Positive Organisms [place] Count 25,000-50,000 MIXC Mixed contaminants. Submit a new specimen if indicated. O POSITIVE == ==== Impression /Plan: 39 wks + 3 days intrauterine with gestational hypertension. Plan Cytotec induction. Preparations in progress for delivery.
[2021-07-30 17:20] LABS: AST(SGOT) 26 U/L (15-37); Alanine Aminotransfer ALT/SGPT 29 U/L (13-56); Creatinine, Serum 0.71 mg/dL (0.55-1.02); EST Glomerular Filtration Rate 105 mL/min (>60); Est Glom Filt Rate - Afr Amer 127 mL/min (>60); Estimated Creatinine Clearance 113.39 ml/min; Uric Acid 6.6 mg/dL (2.6-6.0)
[2021-07-30 18:18] LABS: Protein, Urine (Random) 37.5 mg/dL (<11.9); Protein:Creat Ratio 526 mg/g CRE (0-200)
[2021-07-30] MEDS: Lactated Ringers 1,000 ML 50 ML IV (23:05)
[2021-07-31] VITALS (48 sets, daily range): BP systolic 107–160; BP diastolic 66–108; PULSE 59–114; RESP 16; TEMP 36.2–38.9; O2SAT 96–100
--- NOTE | 2021-07-31 | PLAC_PTH ---
PATIENT: CECI OVALLES LOC: WP U#:[id number] AGE/SX: 25/F ROOM: WP004 RE07/30/[address]: Dr. Alem Pickard MD : 1995 BED: 1 DIS: 08/02/2021 SPEC #: [id number] RECD: 07/31/21 17:42 STATUS: KRISTIE REQ #: [id number] ANASTACIA: 07/31/21 00:[address]: Alem Mendiola DEPT: SURGICAL PATHOLOGY RECD BY: Fede Cronin ENTERED: 08/03/21 11:07 SP TYPE: PLACENTA OTHR DR: Dr. Jesse Gudino MD No Primary Care Phys Tissues: Placenta, NOS Procedures: Surgery Specimen Level V HEADER OPERATION: Vaginal delivery PRE-OP DIAGNOSIS: Fever intrapartum, preeclampsia without severe features TISSUE SUBMITTED: Placenta MICROSCOPIC DIAGNOSIS Placenta: Placental disc - third trimester placenta (450 gm). - Focal area of intraparenchymal hemorrhage (1.5 cm in greatest dimension). - Focal minimal chronic vasculitis, subamniotic blood vessels. See comment. Membranes - no pathologic diagnosis. Umbilical cord - three blood vessels and no pathologic diagnosis. SJ:rg 08/04/2021 COMMENT A few of the subamniotic blood vessels show chronic inflammatory cell infiltrates consisting of lymphocytes and eosinophils. Case has been reviewed in consultation with Dr. Pa who concurs with the above diagnosis. IDC:AM MICROSCOPIC DESCRIPTION Slides are reviewed. GROSS DESCRIPTION SPECIMEN: PLACENTA / CLINICAL INFORMATION: A. Weight: 3.04 kg B. Gestational Age: 39 weeks C. Sex: Female PLACENTAL WEIGHT (POST FIXATION): 450 gm PLACENTAL DIMENSIONS: 15 x 15 x 3 cm PLACENTAL SHAPE: Usual ovoid PLACENTAL WEIGHT FOR GESTATIONAL AGE: Within 10-99th percentile MEMBRANES - Present A. Insertion: Marginal B. Site of rupture from edge: 4.5 cm from edge of placental disc C. Color of membrane: Goss-malone D. Abnormalities: None UMBILICAL CORD - Present A. Color: Goss-malone B. Insertion: Paracentral C. Length: 34 cm D. Diameter: 1-1.5 cm E. Number of vessels: Three F. Abnormalities: None PLACENTAL DISC - Present A. Color of surface: Goss-malone B. surface abnormalities: None C. Maternal cotyledons: Intact with minimal tears D. Attached retro placental clot: No clot E. Cut surface: Dark red and spongy F. Lesions: Sections reveal a goss, indurated lesion measuring 1.5 cm in greatest dimension. G. Separate clot: Absent SECTIONS SUBMITTED: 1. Membrane roll 2. Cord, maternal end 3. Cord, end 4. Placental disc, and maternal surfaces, lesion 5. Placental disc, and maternal surfaces 6. Placental disc, and maternal surfaces ROSE:jenifer 08/03/2021 TC:5 CPT: 60841
[2021-07-31] MEDS: miSOPROStol 25 MCG TABLET PO (01:18)
[2021-07-31 05:35] LABS: ROM Internal Control Test YES-OK TO RESULT pt. (Internal QC)
[2021-07-31 05:36] LABS: ROM Patient Test POSITIVE (Negative)
[2021-07-31] MEDS: Lactated Ringers 500 ML 999 ML IV (05:52)
[2021-07-31] MEDS: fentaNYL-bupivacaine (epidural) 100 ML BAG EPIDURAL ×2 (07:03→11:39)
[2021-07-31] MEDS: Ondansetron 4 MG/2 ML Vial IV (08:04)
[2021-07-31] MEDS: Oxytocin 30 units/NS 500 ml 30 UNITS/500 ML IV.SOLN IV (09:16)
[2021-07-31] MEDS: Lactated Ringers 1,000 ML 200 ML IV ×2 (09:30→14:35)
[2021-07-31] MEDS: Acetaminophen 500 MG Tablet PO (15:32)
[2021-07-31] MEDS: Oxytocin 30 units/NS 500 ml 30 UNITS/500 ML IV.SOLN 334 UNITS IV (15:33)
--- NOTE | 2021-07-31 15:58 | EX.PCM.OBRPT ---
Assessment & Plan (1) Preeclampsia: COMMENT: w/o severe features PLAN: No si/sx of worsening (2) Chorioamnionitis, delivered, current hospitalization: COMMENT: Suspected triple I PLAN: Ampicillin/Gentamicin (3) (spontaneous vaginal delivery): (4) 39 weeks gestation of : Maternal Data Information RICKIE Calculator Estimated Delivery Date Method Current WG Current Estimate 08/03/21 Manual 39w 4d Vaginal Delivery Maternal Presentation Maternal Presentation: Medically Indicated Induction Type of Induction: Pitocin and Cytotec Medical Reason for Induction: - (Preeclampsia without severe features) Operative Information Date of Procedure: 07/31/21 Pre-Operative Diagnosis: 39 5/7 weeks gestation Preeclampsia without severe features Suspected triple I Post-Operative Diagnosis: 39 5/7 weeks gestation Preeclampsia without severe features Suspected triple I Surgery / Procedure Performed: Spontaneous Vaginal Delivery Type of Anesthesia: Epidural Anesthesiologist: Enrique Gudino Drain: Petit to straight drain Estimated Blood Loss: 250 ml Time of Delivery: 15:56 Findings Description of Procedure: Patient was fully dilated +4 station on my arrival with category 2 heart rate tracing tracing with moderate variability and variables present. She pushed to deliver a vigorous female infant. The was placed on maternal abdomen and further attended by nursery personnel. The cord was doubly clamped and cut at approximately 3 minutes of life. Cord blood was obtained. The placenta delivered spontaneously and appeared intact on inspection. A second-degree perineal laceration was repaired using 3-0 Vicryl repeat with good hemostasis. A laceration of the superficial hymenal ring was reapproximated with 3-0 Vicryl to prevent flapping of tissue. Sponge and needle counts were correct x2. Presentation: Vertex Amniotic Membrane Rupture Type: Spontaneous Amniotic Fluid Description: Clear Placental Delivery Description: Spontaneous Cord Vessel Description: 3 Vessels A Gender: Female (1 minute): 9 (5 minute): 9 Delayed Cord Clamping: Yes Post Vaginal Delivery Medications Given After Delivery: IV Pitocin Episiotomy Description: None Laceration: Midline, Perineal Extension/lac and 2nd degree Complication Complications: - (T-max to 102.0 just prior to delivery. Ampicillin and gentamicin ordered.)
[2021-07-31] MEDS: Ibuprofen 600 MG Tablet PO (17:21)
[2021-07-31 17:55] LABS: Pathology Specimen OB SEE PATHOLOGY REPORT
[2021-07-31] MEDS: 0.9% Saline Lock 10 ML Syringe IV (18:16)
[2021-08-01] VITALS (7 sets, daily range): BP systolic 128–147; BP diastolic 80–94; PULSE 59–96; RESP 14–18; TEMP 36.6–36.9; O2SAT 97–100
[2021-08-01] MEDS: Acetaminophen 500 MG Tablet 1000 MG PO ×2 (01:49→16:30)
[2021-08-01 04:20] LABS: Absolute Neutrophil Count 14.4 X10^3/uL (2.0-7.7); Basophil# 0.03 X10^3/uL; Basophil% 0.2 % (0-1); Eosinophil# 0.13 X10^3/uL; Eosinophils% 0.7 % (0-5); Hematocrit 35.3 % (37-47); Hemoglobin 11.7 g/dL (12.0-15.0); Lymphocyte % 16.3 % (19-41); Mean Corp Hgb Conc 33.1 g/dL (32-36); Mean Corpuscular Hgb 28.5 pg (27.0-32.0); Mean Corpuscular Volume 85.9 fL (81-99); Mean Platelet Vol. 10.9 fl (6.2-12.0); Monocyte# 1.25 X10^3/uL; Monocyte% 6.6 % (0-10); NRBC Flagged by Analyzer 0 % (0-5); Neutrophil # 14.36 X10^3/uL (2.7-7.7); Neutrophil % 75.7 % (47-70); Platelet Count 283 K/mm3 (150-450); RBC Distribution Width CV 13.6 % (11.6-14.6); RBC Distribution Width SD 42.5 fl (35.1-43.9); Red Blood Count 4.11 M/mm3 (4.2-5.4)
--- NOTE | 2021-08-01 07:35 | PN.OBGYN_ITS ---
Subjective Subjective No issues overnight. Denies headache, vision changes, upper abdominal pain, fever, chills, nausea or vomiting. She notes some cramping which is tolerable. Denies heavy lochia. She is breast-feeding. Objective Data Objective Data Vital Signs: Vital Signs Temp Pulse Resp BP Pulse Ox 98.1 F 96 18 145/88 H 98 08/01/21 04:00 08/01/21 04:00 08/01/21 04:00 08/01/21 04:00 07/31/21 15:39 Oxygen Delivery Method Room Air Weight: 88.5 kg Body Mass Index (BMI) 31.4 Intake & Output: Intake and Output for Last 24 Hours 07/30/21 07/31/21 08/01/21 23:59 23:59 23:59 Intake Total 1000 / 1000 3951.57 / 3951.57 Output Total 200 / 200 1250 / 1250 Balance 800 / 800 2701.57 / 2701.57 Lab / Micro Data Result Diagrams: 08/01/21 04:10 07/30/21 16:20 Labs: Laboratory Results - last 24 hr 08/01/21 04:10: WBC 19.0 H, RBC 4.11 L, Hgb 11.7 L, Hct 35.3 L, MCV 85.9, MCH 28.5, MCHC 33.1, RDW Std Deviation 42.5, RDW Coeff of Greta 13.6, Plt Count 283, MPV 10.9, Immature Gran % (Auto) 0.500, Neut % (Auto) 75.7 H, Lymph % (Auto) 16.3 L, [place] % (Auto) 6.6, Eos % (Auto) 0.7, Baso % (Auto) 0.2, Absolute Neuts (auto) 14.4 H, Absolute Lymphs (auto) 3.10, Nucleated RBC % 0 Micro: Microbiology 07/30/21 16:35 Nasal Secretion SARS-CoV-2 Antigen (Rapid) - Final Physical Exam Const alert, oriented x3 and no apparent distress Resp normal respiratory effort and normal air movement Cardio regular rate, regular rhythm, S1 normal heart sound and S2 normal heart sound GI soft to palpation, non-tender and non-distended Uterus Palpation: uterus fundus firm and other OB fundus nontender Extremity no calf tenderness Extremity Narrative: Trace ankle edema Neuro oriented x3 Assessment & Plan (1) (spontaneous vaginal delivery): PLAN: O+ Routine care (2) Chorioamnionitis, delivered, current hospitalization: COMMENT: Suspected triple I PLAN: Status post single dose antibiotics Patient afebrile (3) Preeclampsia: QUALIFIERS: Trimester: third trimester Qualified Code(s): O14.93 - Unspecified pre-eclampsia, third trimester COMMENT: w/o severe features PLAN: No signs or symptoms of worsening Continue to monitor blood pressures mostly normal or mild range elevation l
--- NOTE | 2021-08-01 19:18 | CM.ED ---
08/01/21 18:56 - Case Management Note by Jessica Stover Acct Num: [id number] : 07/31/2021 Patient Age: 0m 1d SUNSHINE Note Referral Source: clearance diver Laura Referral Reason: Anxiety SW met with patient. Present in the room was patient's . Patient watched the during the assessment and appeared to be appropriately bonding. Patient was later observed to be holding and rocking the nb when this telegraphic typewriter repairer made surprise visit to drop off [facility]G resource information. Patient gave verbal consent to interview the patient in the presence of her . SW spoke to patient's RN. She had no concerns regarding patient's care of the nb. Mom: Eileen EDC: 08/02/21 PNC: Steve DEICER REPAIRER PNEUMATIC Control: x patch. Patient said that the patch worked well for her in the past. Baby: Vida : 07/31/21 Apgars: 9/9 Weight: 7# 0 ounces and 19 1/2 inches long Weigher Packing: [facility] Patient began breast feeding the nb however, she reported that she had flat nipples and it was difficult for her. Thus patient has been formula feeding the nb. Patient said that she will continue to try breast feeding but when she gave the nb formula and the nb was happy with having a full stomach she felt that she needed to feed using formula and supplement with breast milk. Patient said that her sister delivered a child in March and has been having difficulty with and her sister meets with a automation consultant weekly and they have tried various different methods to assist with breast feeding. Housing: Patient resides in a house with the fob and now the nb Transportation: Patient reports she has access to transportation. She can drive and they have 2 vehicles Supplies: Patient has clothes, carseat, crib and bassinet for the nb. Patient said that as they planned to breast feed the nb they will need to purchase formula for the nb when they are discharged but reported no issues or concerns with purchasing formula. Supports: Patient said that her mother and father are currently in the area but reside in [facility], 2 [place]2 hours away. Patient said that if she needs anything from her parents she can call them and they will come. Patient's sister resides in [place] and will be coming and staying a week with the patient and nb. FOB said that their neighbors are family. Education Level: Patient graduated high school and attended college and technical school. NO learning issues. 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 Patient said that she enjoys her job and the people she works with. Patient said that she plans to work on a PRN basis at the [employer] since the of the nb. Patient's /FOB also reports that they reside on a farm. Agency Involvement: NO JFS, NO HMG, No counseling, NO legal and NO CSB issues. Patient said that they are interested in WIC. SW offered to make referral to WIC for services. SW offered to make referral for HMG and patient said that she would review information about the program. SW went to [facility] web site and printed out information on HMG program and contact number. FOB: [place] Time Together: 1 year, together 7 years Involved at : FOB reports he will be involved with the nb. Patient said that the FOB loves her. Employment: [employer]. FOB said that if he needs to take time off he can take time off. FOB has not planned any time off currently because patient's sister will be here next week. FOB said that he plans to see how it goes but if he needs to take time off he can and will. Other Children: FOAlbina has no other children FOB MH/AOD and DV: FOB reports he is on Prozac and it works well for him. Patient concurred that Prozac works well for the fob. FOB said that his PCP prescribes him Prozac. Maternal MH History: Patient said that she did not feel she was anxious but during the she was over being with the as she was sick. Patient said that she did not enjoy the . 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 Patient said that she had not slowed down during the and did not feel well so she is glad that the nb is born. Patient reports no SI/HI or psychiatric hospitalization. Patient is not on medication currently and has not been on medication in the past. SW educated patient on PPD, shaken baby and safe sleeping. Patient reports she does not smoke, does not drink or use prescription medication not prescribed to her or alcohol. Patient reports no concerns regarding going home at discharge. FOB voiced no concerns or issues regarding discharge. Plan: Home at discharge. Referral to WIC. SW provided patient with handout on Post depression and resources Jessica EDMONDSON Initialized on 08/01/21 18:56 - END OF NOTE
[2021-08-01] MEDS: Ibuprofen 600 MG Tablet PO (19:57)
[2021-08-02 04:30] VITALS: BP 126/85; PULSE 67; RESP 16; TEMP 36.3; O2SAT 97
[2021-08-02 08:40] VITALS: BP 123/81; PULSE 72; RESP 16; TEMP 36.5; O2SAT 97
--- NOTE | 2021-08-02 08:55 | PCM.DC.SUM ---
Providers Date of Admission: 07/30/21 Primary Care Physician: No Primary Care Phys Reason For Visit: VAG DELIVERY Diagnosis Discharge Diagnosis (1) (spontaneous vaginal delivery): Status: Acute Code(s): O80 - Encounter for full-term uncomplicated delivery (2) Chorioamnionitis, delivered, current hospitalization: Status: Acute Code(s): O41.1290 - Chorioamnionitis, unspecified trimester, not applicable or unspecified (3) Preeclampsia: Status: Acute Code(s): O14.90 - Unspecified pre-eclampsia, unspecified trimester Qualifiers: Trimester: third trimester Qualified Code(s): O14.93 - Unspecified pre-eclampsia, third trimester Medications at Discharge Home Medications [id number]-yag-Ke-[id number] 1 tab PO DAILY 05/14/21 ibuprofen 600 mg PO Q6H PRN PRN #30 tab 08/01/21 Hospital Course Operations None Procedures None Summary of Care Provided Hospital Course: 25yo G1 admitted at 39 4/7 weeks gestation for preeclampsia without severe features. She underwent induction of labor and had a vaginal delivery on hospital day #2. She experienced fever during the second stage labor and had Ampicillin/Gentamicin. Her course was uncomplicated and she was more than 36 hours afebrile and discharged to home on day #2. Physical Exam Const alert, oriented x3 and no apparent distress General Appearance: cooperative and comfortable HEENT normocephalic Resp Auscultation: clear to auscultation bilaterally Cardio regular rate, regular rhythm, S1 normal heart sound and S2 normal heart sound OB / External & Speculum: other Uterus Palpation: other OB Fundus firm and nontender Extremity no calf tenderness Weight / BMI Weight Weight: 88.5 kg Body Mass Index (BMI) 31.4 ABG / Lab / Microbiology Data Result Diagrams: 08/01/21 04:10 07/30/21 16:20 Laboratory: Laboratory Results - last 24 hr 08/01/21 04:10: WBC 19.0 H, RBC 4.11 L, Hgb 11.7 L, Hct 35.3 L, MCV 85.9, MCH 28.5, MCHC 33.1, RDW Std Deviation 42.5, RDW Coeff of Greta 13.6, Plt Count 283, MPV 10.9, Immature Gran % (Auto) 0.500, Neut % (Auto) 75.7 H, Lymph % (Auto) 16.3 L, [place] % (Auto) 6.6, Eos % (Auto) 0.7, Baso % (Auto) 0.2, Absolute Neuts (auto) 14.4 H, Absolute Lymphs (auto) 3.10, Nucleated RBC % 0 Microbiology: Microbiology 07/30/21 16:35 Nasal Secretion SARS-CoV-2 Antigen (Rapid) - Final D/C Instructions Discharge Diet: No restrictions Discharge Activity: Return to Normal Activity May resume sexual activity in: 6 weeks Lifting Restricted to (Lbs): 20 Call your doctor if you observe: Fever of 101 or Higher, Using more than 1 pad per hour, Shortness of breath, Chest pain, Calf discomfort, Uncontrolled pain and - (Persistent or severe headache) Please Follow Up With: Jaclyn Kearney DO When: 3 weeks for telehealth follow up 6 weeks for visit Meaningful Use Info Meaningful Use Diagnoses (Choose all that apply): None applicable Discharge Plan Admission Admit Date/Time: 07/30/21 15:50 Primary Reason for Your Visit: Vaginal delivery, Preeclampsia Attending Provider: Alem Mendiola Primary Care Provider: Care Physician,No Primary Consulting Providers: Jesse Gudino Instructions Patient Instructions: After a Vaginal , Depression Discharge Orders/Prescriptions Prescriptions: New ibuprofen 600 mg Tablet 600 mg PO Q6H PRN PRN (Reason: Pain Score 1-3) Qty: 30 RF: 0 Continued [id number]-[id number]-[id number]-FA 1 mg Tablet 1 tab PO DAILY RF: 0 Referrals / Follow Up: Care Physician,No Primary [Primary Care Provider] - Disposition Disposition (needs filled in before D/C Order can be placed): Home, Self Care
--- NOTE | 2021-08-04 10:57 | CM.ED ---
SW made on line referral to [facility], per patients request. Patient was given information on HMG program also. Jessica EDMONDSON
== END 2021-08-02 09:50 | disposition home or self-care (01) | DRG 805 ==
PROVIDERS: Obstetrics & Gynecology; Admitting Provider Obstetrics & Gynecology; Visit Provider Obstetrics & Gynecology
DX: O14.04 Mild to moderate pre-eclampsia, complicating childbirth (principal); Z37.0 Single live birth; O41.1230 Chorioamnionitis, third trimester, not applicable or unspecified; O13.4 Gestational [pregnancy-induced] hypertension without significant proteinuria, complicating childbirth; O70.1 Second degree perineal laceration during delivery; Z3A.39 39 weeks gestation of pregnancy; Z86.16 Personal history of COVID-19
CPT/HCPCS: 59025; 59050; 82565; 82570; 84112; 84156; 84450; 84460; 84550; 85025; 86850; 86900; 86901; 87426; 88307; 99218; J7120; A4216; G0378; J2405